=== PATIENT | male | born 1990 ===

== ENCOUNTER 2022-02-19 18:28 | Emergency (ER) | payer OTHER ==
[2022-02-19] MEDS ORDERED: IBUPROFEN 400 MG TAB ONE (18:58)
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
[2022-02-19 21:52] VITALS: TEMP 97.6
[2022-02-19 21:53] VITALS: O2SAT 100
[2022-02-19 21:54] VITALS: BP 100/67
== END 2022-02-19 20:51 | disposition home or self-care (01) ==
LOC: ER 18:28
PROC: 2W3JX1Z Immobilization of Right Finger using Splint (ICD-10-PCS; principal; 2022-02-19)
DX: S62.614A Displaced fracture of proximal phalanx of right ring finger, initial encounter for closed fracture (principal); F17.210 Nicotine dependence, cigarettes, uncomplicated
CPT/HCPCS: 99284